=== PATIENT | female | born 1985 | race Caucasian/White ===

== ENCOUNTER 2017-11-19 19:27 | Emergency (ER) | payer OTHER, SELFPAY ==
[2017-11-19 20:10] VITALS: BP 137/90; PULSE 110; RESP 20; TEMP 36.6; O2SAT 100; BMI 22.3
[2017-11-19 20:41] VITALS: BP 00/00; PULSE 78; RESP 20; TEMP 36.6; O2SAT 99
== END 2017-11-19 20:41 | disposition left against medical advice (07) ==
LOC: UTC 19:30 → ER 19:44
PROVIDERS: Emergency Provider Emergency Medicine; Family Provider Emergency Medicine; PCP Emergency Medicine
DX: Z53.29 Procedure and treatment not carried out because of patient's decision for other reasons (principal)
CPT/HCPCS: 99211; 99282

== ENCOUNTER → 2017-12-06 13:01 | Outpatient (REF) | payer OTHER, SELFPAY ==
[2017-12-06 18:38] LABS: Alanine Aminotransferase 123 U/L (12-78); Albumin Level 3.9 gm/dL (3.4-5.0); Albumin/Globulin Ratio 1.1 (1.1-1.8); Alkaline Phosphatase 121 U/L (46-116); Anion Gap 12.5 mEq/L (5-15); Aspartate Amino Transferase 72 U/L (15-37); Bilirubin,Total 0.3 mg/dL (0.2-1.0); Blood Urea Nitrogen 11 mg/dL (7-18); Calcium 9.2 mg/dL (8.5-10.1); Carbon Dioxide 30 mmol/L (21.0-32.0); Chloride 104 mmol/L (98-107); Creatinine,Serum 0.52 mg/dL (0.55-1.02); Estimated Glomerular Filt Rate 136 ml/min (>60); GFR (African American) 164 ML/MIN (>60); Globulin 3.6 gm/dl (1.3-3.2); Glucose 84 mg/dL (74-106); Potassium 4.5 mmoL/L (3.5-5.1); Sodium 142 mmol/L (136-145); Total Protein,Serum 7.5 gm/dL (6.4-8.2)
[2017-12-06 20:32] LABS: Basophils # 0.1 K/mm3 (0-0.2); Basophils % 0.7 % (0.1-2.0); Eosinophils # 0.2 K/mm3 (0.0-0.4); Eosinophils % 2.8 % (0.1-12.0); Hematocrit 43.1 % (37.0-47.0); Hemoglobin 14.2 g/dL (12.2-16.2); Lymphocytes # 2.4 K/mm3 (0.7-4.5); Lymphocytes % 38.7 K/mm3 (10-50); Mean Corpuscular HGB Conc 33.1 g/dL (31.8-35.4); Mean Corpuscular Hemoglobin 30.9 pg (27.0-31.2); Mean Corpuscular Volume 93.3 fl (81-99); Mean Platelet Volume 9.8 fl (7.4-10.4); Monocytes # 0.3 K/mm3 (0.1-1.0); Monocytes % 5.1 % (1.7-9.3); Neutrophils # 3.3 K/mm3 (1.8-7.8); Neutrophils % 52.7 % (37.0-80.0); Platelet Count 324 K/mm3 (142-424); Red Blood Count 4.61 M/mm3 (4.20-5.40); Red Cell Distribution Width 12.2 % (11.5-17.5); White Blood Count 6.2 K/mm3 (4.8-10.8)
[2017-12-06 20:33] LABS: Erythrocyte Sedimentation Rate 14 mm/hr (0-20)
== END ==
LOC: LAB 13:01
PROVIDERS: Visit Provider Emergency Medicine
DX: R53.83 Other fatigue (principal)
CPT/HCPCS: 80053; 85025; 85651

== ENCOUNTER → 2017-12-07 14:43 | Outpatient (CLI) | payer OTHER, SELFPAY ==
--- NOTE | 2017-12-07 14:51 | XR_ITS ---
XR sinus min 3V CLINICAL INDICATION: ITS.REASON: Headache ORDERING PHYSICIAN: Chris Kendall MD PATIENT AGE: 32 years COMPARISON: None FINDINGS: No significant mucosal thickening or sinus air-fluid level. No acute bony anomalies. No lytic or blastic change. IMPRESSION: Negative paranasal sinuses.
[2017-12-09 08:20] LABS: Hep A Ab, IgM Negative (Negative); Hepatitis B Core Antibody IgM Negative (Negative); Hepatitis B Surface Antigen Negative (Negative)
[2017-12-09 18:36] LABS: Hepatitis C Antibody >11.0 s/co ratio (0.0-0.9)
== END ==
PROVIDERS: PCP Emergency Medicine; Visit Provider Emergency Medicine
DX: R79.89 Other specified abnormal findings of blood chemistry (principal); R51 Headache
CPT/HCPCS: 36415; 70220; 80074

== ENCOUNTER 2017-12-12 21:05 | Emergency (ER) | payer OTHER, SELFPAY ==
[2017-12-12 21:11] VITALS: BP 151/88; PULSE 67; RESP 20; TEMP 37.1; O2SAT 100; BMI 21.9
--- NOTE | 2017-12-12 21:18 | XR_ITS ---
XR chest 2V HISTORY: ITS.REASON: fever ORDERING PHYSICIAN: Domingo Hillman MD PATIENT AGE: 32 years COMPARISON: 12/24/2010 FINDINGS: The cardiomediastinal silhouette and pulmonary vascularity are within normal limits. The lungs are clear without infiltrates, suspicious nodules, or pleural effusions. No acute bony abnormalities. IMPRESSION: No change with no acute finding, negative chest
--- NOTE | 2017-12-12 21:18 | CT_ITS ---
CT abdomen pelvis wo con CLINICAL INDICATION: Generalized abdominal pain ITS.REASON: abd pain ORDERING PHYSICIAN: Domingo Hillman MD PATIENT AGE: 32 years COMPARISON: 02/10/2016 TECHNIQUE: Axial images obtained with sagittal and coronal reformats. All CT scans at the facility use one or more dose reduction, viz: automated exposure control; ma/kV adjustment per patient size (including targeted exams where dose is matched to indication; i.e. head); or iterative reconstruction technique. PROCEDURE: Oral Contrast: None IV Contrast: None . FINDINGS: Lung bases are clear. Prior cholecystectomy without ductal dilatation. The liver, spleen, adrenal glands, pancreas, and kidneys have an unremarkable unenhanced CT appearance aside from a 2 mm nonobstructing stone in the mid polar region of the left kidney and minimal hyperdensity of the renal papilla nonspecific. There is a moderate amount of retained colonic feces. No evidence of appendicitis, intestinal obstruction, or free air. Post hysterectomy changes. No acute finding pelvis. There are multiple unopacified bowel loops present within the abdomen/pelvis which could obscure or mimic pathology. If symptoms persists, consider repeating exam with IV and oral contrast administration. No acute bony anomalies. There is a ridge of sclerosis involving the left ilium consistent with a bone island unchanged. IMPRESSION: 1. Constipation. 2. Nonobstructing left nephrolithiasis. 3. There are multiple unopacified bowel loops present within the abdomen/pelvis which could obscure or mimic pathology. If symptoms persists, consider repeating exam with IV and oral contrast administration
[2017-12-12 21:35] LABS: Microscopic, Urine URINE MICROSCOPIC (MICROSCOPIC)
[2017-12-12 21:37] LABS: Appearance,Urine CLEAR (Clear); Blood, Urine Negative (Negative); Glucose,Urine (UA) Negative (Negative); Ketones,Urine Negative (Negative); Leukocyte Esterase,Urine Negative (Negative); Nitrate,Urine Negative (Negative); PH,Urine 5.5 (5.0-8.5); Protein,Urine 1+ (Negative); Specific Gravity, Urine >= 1.030 (1.005-1.030)
[2017-12-12 21:39] LABS: Bilirubin,Urine 2+ (Negative); Color,Urine AMBER (Yellow)
[2017-12-12 21:46] LABS: Amphetamine/Metha Screen,Urine Negative ng/mL (<1000); Barbiturates Screen,Urine Negative ng/mL (<200); Benzodiazepines Screen,Urine Negative ng/mL (200); Cannabinoid Screen,Urine Positive ng/mL (<50); Cocaine Screen,Urine Negative ng/g (<300); Methadone Screen,Urine Negative ng/mL (<300); Opiate Screen,Urine Negative ng/mL (<300); Phencyclidine Screen,Urine Negative ng/mL (<25)
--- NOTE | 2017-12-12 21:48 | PC.NURSE ---
unable to obtain iv access after multiple attempts by myself and holger valadez emt-p. dr. morton notified. requested lab to attempt blood draw collection.
[2017-12-12 22:12] LABS: Bacteria,Urine 3+ /lpf; Mucus,Urine 2+ /lpf; RBC,Urine Occasional #/hpf (0-3); Renal Epithelial Cells,Urine Occasional #/lpf (0); Squamous Epithelial Cell,Urine TNTC #/hpf (0-5)
[2017-12-12 22:27] LABS: Basophils % 0.6 % (0.1-2.0); Eosinophils # 0.2 K/mm3 (0.0-0.4); Eosinophils % 3.5 % (0.1-12.0); Hematocrit 37.1 % (37.0-47.0); Hemoglobin 12.9 g/dL (12.2-16.2); Lymphocytes # 2.3 K/mm3 (0.7-4.5); Lymphocytes % 46.8 K/mm3 (10-50); Mean Corpuscular HGB Conc 34.6 g/dL (31.8-35.4); Mean Corpuscular Volume 89.5 fl (81-99); Mean Platelet Volume 7.6 fl (7.4-10.4); Monocytes # 0.2 K/mm3 (0.1-1.0); Monocytes % 4.6 % (1.7-9.3); Neutrophils # 2.2 K/mm3 (1.8-7.8); Neutrophils % 44.5 % (37.0-80.0); Platelet Count 236 K/mm3 (142-424); Red Blood Count 4.15 M/mm3 (4.20-5.40); Red Cell Distribution Width 12.1 % (11.5-17.5); White Blood Count 4.9 K/mm3 (4.8-10.8)
--- NOTE | 2017-12-12 22:37 | HMH.EDGENADL ---
ED Disposition Clinical Impression: Epigastric abdominal pain, Dehydration Disposition: Home, Self-Care Condition on Discharge: Good Instructions: DI for Abdominal Pain-Adult, DI for Dehydration -- Adult Additional Instructions: Drink plenty of fluids, Gatorade and water tonight and tomorrow. Keep appointment to see Dr. Kendall tomorrow. Referrals: Chris Kendall MD [Primary Care Provider] - - Critical Care Critical Care Time: No Attestation: On 12/12/17, the high probability of a clinically significant, sudden or life threatening deterioration of the following system(s) required my full and direct attention, intervention and personal management. The time I documented below is in addition to time spent performing reported procedures but includes the following listed in this critical care notation. Medical Decision Making - Tacho Inquiry Pt receiving controlled substance: No Vital Signs: 12/12/17 21:11 Temperature 98.7 F Temperature Source Oral Pulse Rate [Right Radial] 67 Respiratory Rate 20 Blood Pressure [Right Arm] 151/88 Blood Pressure Mean [Right Arm] 109 Blood Pressure Position [Right Arm] Sitting 02 Sat by Pulse Oximetry 100 - Lab Data Lab results reviewed: Yes: I reviewed the patient's lab results. Lab Results 12/12/17 21:30: Urine Color Deja, Urine Appearance Clear, Urine pH 5.5, Ur Specific [place] >= 1.030, Urine Protein 1+, Urine Glucose (UA) Negative, Urine Ketones Negative, Urine Blood Negative, Urine Nitrate Negative, Urine Bilirubin 2+ A, Urine Urobilinogen 4.0, Ur Leukocyte Esterase Negative, Urine RBC Occasional, Urine WBC 10-20, Ur Squamous Epith Cells Tntc, Ur Renal Epithelial Cell Occasional, Urine Bacteria 3+, Urine Mucus 2+ 12/12/17 21:30: Urine Opiates Screen Negative, Ur Barbituates Screen Negative, Ur Phencyclidine Scrn Negative, Ur Amphetamines Screen Negative, U Methamphetamines Scrn Negative, U Benzodiazepines Scrn Negative, Urine Cocaine Screen Negative, U Marijuana (THC) Screen Positive H 12/12/17 22:15: WBC 4.9, RBC 4.15 L, Hgb 12.9, Hct 37.1, MCV 89.5, MCH 31.0, MCHC 34.6, RDW 12.1, Plt Count 236, MPV 7.6, Neut % (Auto) 44.5, Lymph % (Auto) 46.8, [place] % (Auto) 4.6, Eos % (Auto) 3.5, Baso % (Auto) 0.6, Neut # (Auto) 2.2, Lymph # (Auto) 2.3, [place] # (Auto) 0.2, Eos # (Auto) 0.2, Baso # (Auto) 0.0 12/12/17 22:15: Sodium 136, Potassium 3.9, Chloride 104, Carbon Dioxide 25, Anion Gap 10.9, BUN 22 H, Creatinine 0.47 L, Estimated Creat Clear 156, Estimated GFR 153, Est GFR ( Amer) 185, Glucose 98, Calcium 8.6, Total Bilirubin 0.3, AST 45 H, ALT 55, Alkaline Phosphatase 87, Total Creatine Kinase 128, CK-MB (CK-2) 1.3, CK-MB (CK-2) Rel Index 1.0, Troponin I < 0.02, Total Protein 7.5, Albumin 3.9, Globulin 3.6 H, Albumin/Globulin Ratio 1.1, Plasma/Serum Alcohol 0 12/12/17 22:15: Amylase 27, Lipase 55 L Urinalysis has too numerous to count epithelial cells, likely contaminated. Advised to follow-up culture results from her primary care doctor, doubt UTI. Result diagrams: 12/12/17 22:15 12/12/17 22:15 Orders (Tests/Meds): ED MEDICATIONS Discontinued Medications Generic Name Dose Route Start Last Admin Trade Name Freq PRN Reason Stop Dose Admin Sodium Chloride 1,000 mls @ 999 mls/hr 12/12/17 21:30 12/12/17 21:49 Sod Chlor 0.9% 1000ml Bag IV 12/12/17 22:30 Not Given .Q1H1M [facility] ORDERS Category Date Time Status CT abdomen pelvis wo con Stat Cat Scan 12/12/17 21:18 Taken XR chest 2V Stat Exams 12/12/17 21:18 Taken Urinalysis and Microscopic Stat Lab 12/12/17 22:43 Ordered Urine Culture Stat Micro 12/12/17 21:30 Received - CT Data CT Scan: Abdomen, Pelvis Time Received: 22:[address] Reviewed: Yes: I have viewed the radiologist's interpretation Findings Narrative: CT scan interpreted by [facility] radiologist. Faxed report received and reviewed: Evidence of some degree of constipation. - ECG Data Tracing #1 EKG interpreted by Paige
[2017-12-12 22:51] LABS: Alanine Aminotransferase 55 U/L (12-78); Albumin Level 3.9 gm/dL (3.4-5.0); Albumin/Globulin Ratio 1.1 (1.1-1.8); Alkaline Phosphatase 87 U/L (46-116); Anion Gap 10.9 mEq/L (5-15); Aspartate Amino Transferase 45 U/L (15-37); Bilirubin,Total 0.3 mg/dL (0.2-1.0); Blood Urea Nitrogen 22 mg/dL (7-18); Calcium 8.6 mg/dL (8.5-10.1); Carbon Dioxide 25 mmol/L (21.0-32.0); Chloride 104 mmol/L (98-107); Creatine Kinase 128 U/L (26-192); Creatine Kinase MB 1.3 ng/ml (0.0-3.6); Creatinine Clearance Estimated 156 mL/min (0-300); Creatinine,Serum 0.47 mg/dL (0.55-1.02); Estimated Glomerular Filt Rate 153 ml/min (>60); GFR (African American) 185 ML/MIN (>60); Globulin 3.6 gm/dl (1.3-3.2); Glucose 98 mg/dL (74-106); Potassium 3.9 mmoL/L (3.5-5.1); Sodium 136 mmol/L (136-145); Total Protein,Serum 7.5 gm/dL (6.4-8.2); Troponin I < 0.02 ng/ml (0.00-0.06)
[2017-12-12 23:01] LABS: Ethyl Alcohol 0 mg/dL (0-99)
[2017-12-12 23:07] LABS: Amylase 27 U/L (25-125); Lipase 55 u/L (73-393)
[2017-12-12 23:32] VITALS: BP 149/87; PULSE 85; RESP 16; TEMP 36.8; O2SAT 99
== END 2017-12-12 23:33 | disposition home or self-care (01) ==
PROVIDERS: Emergency Provider Emergency Medicine; Family Provider Emergency Medicine; PCP Emergency Medicine
DX: R10.13 Epigastric pain (principal); E86.0 Dehydration; Z88.0 Allergy status to penicillin; F17.210 Nicotine dependence, cigarettes, uncomplicated
CPT/HCPCS: 71046; 74176; 80053; 80305; 81001; 82150; 82550; 82553; 83690; 84484; 85025; 87086; 93005; 99283

== ENCOUNTER → 2018-01-02 10:34 | Outpatient (REF) | payer OTHER, SELFPAY ==
[2018-01-02 14:44] LABS: Basophils % 0.5 % (0.1-2.0); Eosinophils # 0.2 K/mm3 (0.0-0.4); Hematocrit 39.1 % (37.0-47.0); Hemoglobin 12.9 g/dL (12.2-16.2); Lymphocytes # 2.7 K/mm3 (0.7-4.5); Lymphocytes % 41.7 K/mm3 (10-50); Mean Corpuscular HGB Conc 32.9 g/dL (31.8-35.4); Mean Corpuscular Hemoglobin 31.3 pg (27.0-31.2); Mean Corpuscular Volume 95.1 fl (81-99); Mean Platelet Volume 8.5 fl (7.4-10.4); Monocytes # 0.4 K/mm3 (0.1-1.0); Monocytes % 5.6 % (1.7-9.3); Neutrophils # 3.1 K/mm3 (1.8-7.8); Neutrophils % 49.3 % (37.0-80.0); Platelet Count 229 K/mm3 (142-424); Red Blood Count 4.11 M/mm3 (4.20-5.40); Red Cell Distribution Width 12.4 % (11.5-17.5); White Blood Count 6.3 K/mm3 (4.8-10.8)
[2018-01-02 14:46] LABS: Alanine Aminotransferase 74 U/L (12-78); Albumin Level 3.8 gm/dL (3.4-5.0); Albumin/Globulin Ratio 1.1 (1.1-1.8); Alkaline Phosphatase 116 U/L (46-116); Amylase 44 U/L (25-125); Anion Gap 11.3 mEq/L (5-15); Aspartate Amino Transferase 33 U/L (15-37); Bilirubin,Total 0.3 mg/dL (0.2-1.0); Blood Urea Nitrogen 12 mg/dL (7-18); Calcium 8.9 mg/dL (8.5-10.1); Carbon Dioxide 29 mmol/L (21.0-32.0); Chloride 104 mmol/L (98-107); Creatinine,Serum 0.52 mg/dL (0.55-1.02); Estimated Glomerular Filt Rate 136 ml/min (>60); GFR (African American) 164 ML/MIN (>60); Globulin 3.4 gm/dl (1.3-3.2); Glucose 87 mg/dL (74-106); Lipase 92 u/L (73-393); Potassium 4.3 mmoL/L (3.5-5.1); Sodium 140 mmol/L (136-145); Total Protein,Serum 7.2 gm/dL (6.4-8.2)
[2018-01-07 18:50] LABS: Hepatitis C Genotype 1a (.)
== END ==
LOC: LAB 10:34
PROVIDERS: Visit Provider Emergency Medicine
DX: R10.11 Right upper quadrant pain (principal)
CPT/HCPCS: 80053; 82150; 83690; 85025; 87522

== ENCOUNTER 2020-07-01 23:21 | Emergency (ER) | payer MEDICAID, SELFPAY ==
[2020-07-01 23:38] VITALS: BP 152/96; PULSE 77; RESP 16; TEMP 37; O2SAT 99; BMI 24.0
--- NOTE | 2020-07-01 23:54 | XR_ITS ---
PROCEDURE: XR CHEST 2V CLINICAL HISTORY: SOA post covid exposure COMPARISON: CR CXR2V XR chest 2V from 12/12/2017 FINDINGS: The cardiomediastinal silhouette and pulmonary vascularity are within normal limits. The lungs are clear without infiltrates, suspicious nodules, or pleural effusions. No acute bony abnormalities. IMPRESSION: No acute findings. Dictated by: Ifeanyi Jacinto MD 07/02/2020 05:28 Ifeanyi Jacinto MD in [facility] 07/02/2020 05:28
--- NOTE | 2020-07-02 00:01 | HMH.EDSOB ---
ED Disposition Clinical Impression: Exposure to COVID-19 virus Disposition: Home, Self-Care Condition on Discharge: Good Instructions: DI for Shortness of Breath Additional Instructions: fluids and see pcp for follow up Referrals: Ellen Hinkle APRN [Primary Care Provider] - - Critical Care Critical Care Time: No Attestation: On 07/01/20, the high probability of a clinically significant, sudden or life threatening deterioration of the following system(s) required my full and direct attention, intervention and personal management. The time I documented below is in addition to time spent performing reported procedures but includes the following listed in this critical care notation. Medical Decision Making - Medical Records Medical records reviewed: Yes: I reviewed the patient's medical records. - Tacho Inquiry Pt receiving controlled substance: No Vital Signs: 07/01/20 23:38 Temperature 98.6 F Temperature Source Oral Pulse Rate [Right] 77 Respiratory Rate 16 Blood Pressure [Right Arm] 152/96 H Blood Pressure Mean [Right Arm] 114 Blood Pressure Source [Right Arm] Automatic Cuff Blood Pressure Position [Right Arm] Sitting 02 Sat by Pulse Oximetry 99 Oxygen Delivery Method Room Air - Lab Data Lab results reviewed: Yes: I reviewed the patient's lab results. Orders (Tests/Meds): ED MEDICATIONS Discontinued Medications Generic Name Dose Route Start Last Admin Trade Name Freq PRN Reason Stop Dose Admin Sodium Chloride 1,000 mls @ 999 mls/hr 07/01/20 23:45 07/02/20 00:30 Sod Chlor 0.9% 1000ml Bag IV 07/02/20 00:45 Not Given .Q1H1M CATHY Ondansetron HCl 4 mg 07/01/20 23:54 07/02/20 00:30 Ondansetron 4mg/2ml Vial IV 07/01/20 23:55 Not Given ONCE ONE Ondansetron HCl 4 mg 07/02/20 00:28 07/02/20 00:31 Ondansetron 4mg Odt SL 07/02/20 00:29 4 mg ONCE ONE Administration ORDERS Category Date Time Status XR chest 2V Stat Exams 07/01/20 23:54 Taken C-Reactive Protein Stat Lab 07/01/20 23:54 Received Complete Blood Count Auto Diff Stat Lab 07/01/20 23:54 Received Comprehensive Metabolic Panel Stat Lab 07/01/20 23:54 Received Erythrocyte Sedimentation Rate Stat Lab 07/01/20 23:54 Received - Radiology Data #1 Image(s): Chest Image Reviewed: Yes I reviewed the patient's radiology image Preliminary Findings: Normal/NAD Resp/SOB HPI - General Chief Complaint: Shortness of Breath/Dyspnea Stated Complaint: fever,headache,V/D,hot & cold, aches all over Time Seen by Provider: 07/02/20 00:00 Mode of Arrival: Ambulatory Source of Information: Patient, Medical Record Limitations: No Limitations Description of Symptoms (Recalled from ER Triage Doc. by RN): Pt states she has been exposed to COVID at her workplace and it c/o Diarrhea, cough, SOA and decreased taste. - History of Present Illness pt with exposure to covid-19 and has cough and sob with change in taste -no rash MD Complaint: shortness of breath, cough Onset (ago): day(s) Context: other (exposure ) Severity: moderate Associated symptoms: nausea/vomiting Treatment prior to arrival: none - Related Data Home oxygen amount: none Allergies Allergy/AdvReac Type Severity Reaction Status Date / Time Penicillins [PENICILLINS] Allergy Intermediate Verified 07/02/20 00:03 [facility] History - Hepatitis A Screen Drug use history?: Yes High risk sexual behaviors?: No History of sexually transmitted infection?: No Currently employed?: No Childcare worker?: No Do you have indoor plumbing?: Yes Do you have electricity?: Yes Attestation statement:: This patient has been screened for Hepatitis A risk factors. I have reviewed the patient's past medical history: Yes Medical History: Reports:: Kidney Stones Denies:: Cancer, Diabetes Mellitus Type 1, Diabetes Mellitus Type 2, MRSA Other Surgeries: Yes: Hysterectomy-Total, Other Amputation: No Fractures: Yes - Social History Smoking Statu
[2020-07-02 00:41] LABS: Basophils # 0.1 K/mm3 (0-0.2); Basophils % 0.8 % (0.1-2.0); Eosinophils # 0.3 K/mm3 (0.0-0.4); Eosinophils % 3.7 % (0.1-12.0); Hematocrit 41.2 % (37.0-47.0); Hemoglobin 13.4 g/dL (12.2-16.2); Lymphocytes # 2.2 K/mm3 (0.7-4.5); Lymphocytes % 32.6 % (10-50); Mean Corpuscular HGB Conc 32.6 g/dL (31.8-35.4); Mean Corpuscular Hemoglobin 31.1 pg (27.0-31.2); Mean Corpuscular Volume 95.5 fl (81-99); Mean Platelet Volume 7.5 fl (7.4-10.4); Monocytes # 0.4 K/mm3 (0.1-1.0); Monocytes % 5.6 % (1.7-9.3); Neutrophils # 3.8 K/mm3 (1.8-7.8); Neutrophils % 57.3 % (37.0-80.0); Platelet Count 279 K/mm3 (142-424); Red Blood Count 4.32 M/mm3 (4.20-5.40); White Blood Count 6.7 K/mm3 (4.8-10.8)
[2020-07-02 00:51] LABS: Alanine Aminotransferase 56 U/L (12-78); Albumin Level 4.5 g/dl (3.5-5.0); Albumin/Globulin Ratio 1.5 (1.1-1.8); Alkaline Phosphatase 108 U/L (38-126); Anion Gap 10.1 mEq/L (5-15); Aspartate Amino Transferase 46 U/L (14-36); Bilirubin,Total 0.3 mg/dl (0.2-1.3); Blood Urea Nitrogen 12 mg/dl (7-17); Calcium 9.3 mg/dl (8.4-10.2); Carbon Dioxide 27 mmol/L (22.0-30.0); Chloride 107 mmol/L (98-107); Creatinine Clearance Estimated 156 mL/min (50-200); Estimated Glomerular Filt Rate 140 ml/min (>60); GFR (African American) 169 ML/MIN (>60); Globulin 3.1 g/dL (1.3-3.2); Glucose 92 mg/dl (74-100); Potassium 4.1 mmoL/L (3.5-5.1); Sodium 140 mmol/L (136-145); Total Protein,Serum 7.6 g/dl (6.3-8.2)
[2020-07-02 00:56] LABS: C-Reactive Protein 0.5 mg/L (0-4)
--- NOTE | 2020-07-02 00:58 | PC.NURSE ---
2 attempts and IV was not able to be obtained Dr Kendall notified
[2020-07-02 01:04] LABS: Adenovirus,PCR Not Detected (NotDetected); Bordetella Pertussis Not Detected (NotDetected); Chlamydophila Pneumoniae, PCR Not Detected (NotDetected); Coronavirus 19, PCR Not Detected (NotDetected); Coronavirus 229E Not Detected (NotDetected); Coronavirus NL63 Not Detected (NotDetected); Coronavirus OC43 Not Detected (NotDetected); Coronovirus HKU1,PCR Not Detected (NotDetected); Human Metapneumovirus Not Detected (NotDetected); Influenza A, PCR Not Detected (NotDetected); Influenza AH1, 2009 Not Detected (NotDetected); Influenza AH1, PCR Not Detected (NotDetected); Influenza AH3,PCR Not Detected (NotDetected); Influenza B, PCR Not Detected (NotDetected); Mycoplasma Pneumoniae, PCR Not Detected (NotDetected); Parainfluenza 1, PCR Not Detected (NotDetected); Parainfluenza 2, PCR Not Detected (NotDetected); Parainfluenza 3, PCR Not Detected (NotDetected); Parainfluenza 4, PCR Not Detected (NotDetected); Respiratory Syncytial Virus Not Detected (NotDetected); Rhinovirus/Enterovirus Not Detected (NotDetected)
[2020-07-02 01:22] LABS: Erythrocyte Sedimentation Rate 19 mm/hr (0-20)
[2020-07-02 01:40] LABS: Coronavirus 19 IgG Antibody Negative (Negative); Coronavirus 19 IgM Antibody Negative (Negative)
[2020-07-02 01:41] VITALS: BP 141/86; PULSE 71; RESP 16; TEMP 36.8; O2SAT 98
== END 2020-07-02 01:42 | disposition home or self-care (01) ==
PROVIDERS: Emergency Provider Emergency Medicine; PCP Nurse Practitioner
DX: Z20.828 Contact with and (suspected) exposure to other viral communicable diseases (principal); F17.210 Nicotine dependence, cigarettes, uncomplicated
CPT/HCPCS: 36415; 71046; 80053; 85025; 85651; 86140; 86328; 87581; 87633; 87798; 99282; U0003

== ENCOUNTER 2020-12-14 16:07 | Emergency (ER) | payer MEDICAID, SELFPAY ==
[2020-12-14] VITALS (7 sets, daily range): BP systolic 107–127; BP diastolic 74–98; PULSE 66–89; RESP 19–20; TEMP 36.6–36.9; O2SAT 99–100; BMI 24.0
--- NOTE | 2020-12-14 16:11 | HMH.EDGENADL ---
ED Disposition Clinical Impression: Pyelonephritis Disposition: Home, Self-Care Condition on Discharge: Good Additional Instructions: Take antibiotic as prescribed. Drink plenty of clear fluids. Return immediately if any generalized malaise, intractable nausea/vomiting, fever/chills, or other new concerning symptoms. Prescriptions: Cefdinir [Omnicef 300mg Capsule] 300 mg PO BID #20 cap Prescription Printed Referrals: Chris Kendall MD [Primary Care Provider] - - Critical Care Critical Care Time: No Attestation: On , the high probability of a clinically significant, sudden or life threatening deterioration of the following system(s) required my full and direct attention, intervention and personal management. The time I documented below is in addition to time spent performing reported procedures but includes the following listed in this critical care notation. Medical Decision Making - Medical Records Medical records reviewed: Yes: I reviewed the patient's medical records. - Tacho Inquiry Pt receiving controlled substance: No Vital Signs: 12/14/20 16:08 12/14/20 17:00 12/14/20 17:30 Temperature 97.8 F Temperature Source Oral Pulse Rate 73 66 Pulse Rate [Left Radial] 89 Respiratory Rate 20 Blood Pressure 116/76 Blood Pressure [Right Arm] 127/98 H Blood Pressure Mean 89 Blood Pressure Mean [Right Arm] 107 Blood Pressure Source [Right Arm] Automatic Cuff Blood Pressure Position [Right Arm] Supine 02 Sat by Pulse Oximetry 100 99 100 Oxygen Delivery Method Room Air - Lab Data Lab Results 12/14/20 16:15: Urine Color Yellow, Urine Appearance Clear, Urine pH 6.5, Ur Specific [place] 1.020, Urine Protein Negative, Urine Glucose (UA) Negative, Urine Ketones Negative, Urine Blood Negative, Urine Nitrate Negative, Urine Bilirubin Negative, Urine Urobilinogen 4.0, Ur Leukocyte Esterase Trace, Urine RBC Occasional, Urine WBC 5-10, Ur Squamous Epith Cells 10-20, Urine Bacteria 2+ 12/14/20 16:15: WBC 6.3, RBC 4.69, Hgb 14.7, Hct 44.9, MCV 95.8, MCH 31.4 H, MCHC 32.8, RDW 12.6, Plt Count 318, MPV 8.5, Neut % (Auto) 70.2, Lymph % (Auto) 22.4, [place] % (Auto) 4.6, Eos % (Auto) 1.9, Baso % (Auto) 0.9, Neut # (Auto) 4.5, Lymph # (Auto) 1.4, [place] # (Auto) 0.3, Eos # (Auto) 0.1, Baso # (Auto) 0.1 12/14/20 16:15: Sodium 139, Potassium 3.9, Chloride 103, Carbon Dioxide 26, Anion Gap 13.9, BUN 11, Creatinine 0.50 L, Estimated Creat Clear 156, Estimated GFR 140, Est GFR ( Amer) 169, Glucose 90, Calcium 10.0, Total Bilirubin 0.7, AST 74 H, ALT 72, Alkaline Phosphatase 107, Total Protein 9.2 H, Albumin 5.4 H, Globulin 3.8 H, Albumin/Globulin Ratio 1.4, Amylase 74, Lipase 49 Result diagrams: 12/14/20 16:15 12/14/20 16:15 Orders (Tests/Meds): ED MEDICATIONS Discontinued Medications Generic Name Dose Route Start Last Admin Trade Name Freq PRN Reason Stop Dose Admin Sodium Chloride 1,000 mls @ 999 mls/hr 12/14/20 16:30 Sod Chlor 0.9% 1000ml Bag IV 12/14/20 17:30 .Q1H1M CATHY Lactated Ringer's 1,000 mls @ 999 mls/hr 12/14/20 16:30 12/14/20 16:28 Lactated Ringer's 1000 Ml Bag IV 12/14/20 17:30 999 mls/hr .Q1H1M CATHY Administration Ketorolac Tromethamine 30 mg 12/14/20 16:23 12/14/20 16:28 Ketorolac 30mg/Ml Vial IV 12/14/20 16:24 30 mg ONCE ONE Administration Ondansetron HCl 4 mg 12/14/20 16:23 12/14/20 16:28 Ondansetron 4mg/2ml Vial IV 12/14/20 16:24 4 mg ONCE ONE Administration ORDERS Category Date Time Status Urine Culture Stat Micro 12/14/20 16:15 Received Medical Decision Narrative: Patient is a 35-year-old female presenting with left flank pain. She does have remote history of kidney stones and her HPI/physical exam consistent with renal colic. At this time, patient given Toradol, Zofran, and a fluid bolus. As she has required lithotripsy in the past for difficulty passing stone CT without contrast will be ordered. Metaboli
--- NOTE | 2020-12-14 16:24 | CT_ITS ---
PROCEDURE: CT ABDOMEN PELVIS WO CON CLINICAL INDICATION: pain COMPARISON: CT ABDPELWO CT abdomen pelvis wo con from 12/12/2017 TECHNIQUE: Axial images obtained with sagittal and coronal reformats. All CT scans at the facility use one or more dose reduction, viz: automated exposure control, ma/kV adjustment per patient size (including targeted exams where dose is matched to indication, i.e. head), or iterative reconstruction technique. FINDINGS: LOWER THORAX: No acute finding ABDOMEN & PELVIS: Evaluation of the upper abdominal solid viscera is limited due to lack of intravenous contrast. The liver, spleen, adrenal glands, and pancreas are unremarkable within the limitations of the study. Few scattered nonobstructing calculi noted in the kidneys bilaterally measuring up to 2 millimeters. No evidence of hydronephrosis or hydroureter. No evidence of obstructive calculi are noted. Multiple calcified phleboliths are noted in the pelvis. The bladder is unremarkable. The pelvic structures are within normal limits. Large and small bowel loops demonstrate no focal wall thickening, obstruction or adjacent inflammatory changes. Cholecystectomy is noted. No intra or extrahepatic biliary dilation. No free fluid or free intraperitoneal air. Focal sclerotic density noted on the sacrum and right acetabulum, likely represents bone islands. Visualized lumbar spine is unremarkable. IMPRESSION: Bilateral non-obstructing renal calculi. No evidence of hydronephrosis. Dictated by: Concepcion Lombardi 12/14/2020 17:33 Concepcion Lombardi in [place] 12/14/2020 17:33
[2020-12-14 16:28] LABS: Microscopic, Urine URINE MICROSCOPIC (MICROSCOPIC)
[2020-12-14 16:31] LABS: Appearance,Urine CLEAR (Clear); Bilirubin,Urine Negative (Negative); Blood, Urine Negative (Negative); Color,Urine YELLOW (Yellow); Glucose,Urine (UA) Negative (Negative); Ketones,Urine Negative (Negative); Leukocyte Esterase,Urine TRACE (Negative); Nitrate,Urine Negative (Negative); PH,Urine 6.5 (5.0-8.5); Protein,Urine Negative (Negative)
[2020-12-14 16:50] LABS: Bacteria,Urine 2+ /lpf; RBC,Urine Occasional #/hpf (0-3)
--- NOTE | 2020-12-14 17:06 | PC.NURSE ---
PT GOING TO CT
[2020-12-14 18:37] LABS: Basophils # 0.1 K/mm3 (0-0.2); Basophils % 0.9 % (0.1-2.0); Eosinophils # 0.1 K/mm3 (0.0-0.4); Eosinophils % 1.9 % (0.1-12.0); Hematocrit 44.9 % (37.0-47.0); Hemoglobin 14.7 g/dL (12.2-16.2); Lymphocytes # 1.4 K/mm3 (0.7-4.5); Lymphocytes % 22.4 % (10-50); Mean Corpuscular HGB Conc 32.8 g/dL (31.8-35.4); Mean Corpuscular Hemoglobin 31.4 pg (27.0-31.2); Mean Corpuscular Volume 95.8 fl (81-99); Mean Platelet Volume 8.5 fl (7.4-10.4); Monocytes # 0.3 K/mm3 (0.1-1.0); Monocytes % 4.6 % (1.7-9.3); Neutrophils # 4.5 K/mm3 (1.8-7.8); Neutrophils % 70.2 % (37.0-80.0); Platelet Count 318 K/mm3 (142-424); Red Blood Count 4.69 M/mm3 (4.20-5.40); Red Cell Distribution Width 12.6 % (11.5-17.5); White Blood Count 6.3 K/mm3 (4.8-10.8)
[2020-12-14 18:46] LABS: Chloride 103 mmol/L (98-107); Sodium 139 mmol/L (136-145)
[2020-12-14 18:47] LABS: Potassium 3.9 mmoL/L (3.5-5.1)
[2020-12-14 18:49] LABS: Alanine Aminotransferase 72 U/L (12-78); Alkaline Phosphatase 107 U/L (38-126); Amylase 74 U/L (30-110); Anion Gap 13.9 mEq/L (5-15); Aspartate Amino Transferase 74 U/L (14-36); Bilirubin,Total 0.7 mg/dl (0.2-1.3); Blood Urea Nitrogen 11 mg/dl (7-17); Carbon Dioxide 26 mmol/L (22.0-30.0); Creatinine Clearance Estimated 156 mL/min (50-200); Estimated Glomerular Filt Rate 140 ml/min (>60); GFR (African American) 169 ML/MIN (>60); Glucose 90 mg/dl (74-100); Lipase 49 U/L (23-300)
[2020-12-14 18:50] LABS: Albumin Level 5.4 g/dl (3.5-5.0); Albumin/Globulin Ratio 1.4 (1.1-1.8); Globulin 3.8 g/dL (1.3-3.2); Total Protein,Serum 9.2 g/dl (6.3-8.2)
== END 2020-12-14 19:57 | disposition home or self-care (01) ==
PROVIDERS: Emergency Provider Emergency Medicine; PCP Emergency Medicine
DX: N12 Tubulo-interstitial nephritis, not specified as acute or chronic (principal); Z87.442 Personal history of urinary calculi; F17.210 Nicotine dependence, cigarettes, uncomplicated; Z88.0 Allergy status to penicillin
CPT/HCPCS: 74176; 80053; 81001; 82150; 83690; 85025; 87086; 96365; 96375; 99283; J2405

== ENCOUNTER → 2020-12-21 13:52 | Outpatient (CLI) | payer MEDICAID, SELFPAY | PROVIDERS: Visit Provider Emergency Medicine | DX: N20.0 Calculus of kidney (principal); N30.90 Cystitis, unspecified without hematuria | CPT/HCPCS: 87086 ==

== ENCOUNTER 2021-01-09 19:43 | Emergency (ER) | payer MEDICAID, SELFPAY ==
[2021-01-09 19:44] VITALS: BP 120/74; PULSE 89; RESP 14; TEMP 36.9; O2SAT 95; BMI 22.8
--- NOTE | 2021-01-09 20:41 | HMH.EDUTC ---
[facility] Disposition Clinical Impression: Viral syndrome, Exposure to COVID-19 virus Disposition: Home, Self-Care Condition on Discharge: Good Instructions: Preventing the Spread of Coronavirus Discharge Instructions Additional Instructions: Drink plenty of fluids. Take tylenol for pain or fever. Return if you begin to have difficulty breathing. Follow up with your regular doctor. GO TO THE ER FOR ANY WORSENING SYMPTOMS Referrals: PCP,No [Primary Care Provider] - Forms: Work/School Release Time of Disposition: 20:42 Medical Decision Making - Medical Records Medical records reviewed: No: I reviewed the patient's medical records. - T[place] Inquiry Pt receiving controlled substance: No Vital Signs: 01/09/21 19:44 01/09/21 20:55 Temperature 98.4 F 98.4 F Temperature Source Oral Oral Pulse Rate 89 Pulse Rate [Right] 89 Respiratory Rate 14 14 Blood Pressure 120/74 Blood Pressure [Right Arm] 120/74 Blood Pressure Mean [Right Arm] 89 02 Sat by Pulse Oximetry 95 Oxygen Delivery Method Room Air Orders (Tests/Meds): ORDERS Category Date Time Status Covid-19 Nasal PCR ([facility]) Routine Lab 01/09/21 20:00 Received [facility] HPI - General Stated complaint: covid test Time Seen by Provider: 01/09/21 20:41 Description of Symptoms (Recalled from Triage Doc. by RN): pt request covid test. pt c/o n/v head congestion HEENT Symptoms (Recalled from RN notes): Yes Resp Symptoms (Recalled from RN notes): Yes Skin Symptoms (Recalled from RN notes): No MS Symptoms (Recalled from RN notes): No Functional Status (Recalled from RN notes): wnl - History of Present Illness Provider Complaint: She states that she may have been exposed to covid at her work. She c/o chills and body aches. She denies any shortness of breath. - Related Data Previous Rx's Medication Instructions Recorded diclofenac sodium 1 % topical gel 2 g TOPICAL QID #100 g 11/20/20 lidocaine 4 % topical patch 1 patch TOPICAL DAILY PRN #30 each 11/20/20 tizanidine 4 mg tablet 4 mg PO BID PRN #60 tab 11/20/20 tramadol 50 mg tablet 50 mg PO BID PRN #20 tab 11/20/20 Cefdinir [Omnicef 300mg Capsule] 300 mg PO BID #20 cap 12/14/20 acetaminophen 300 mg-codeine 30 mg 1 tab PO TID #10 tab 12/21/20 tablet Allergies Allergy/AdvReac Type Severity Reaction Status Date / Time Penicillins [PENICILLINS] Allergy Intermediate Verified 12/21/20 09:02 - Worker's Comp Is this a Worker's Comp case?: No H History - Hepatitis A Screen Drug use history?: No High risk sexual behaviors?: No History of sexually transmitted infection?: No Currently employed?: No Childcare worker?: No Do you have indoor plumbing?: Yes Do you have electricity?: Yes Attestation statement:: This patient has been screened for Hepatitis A risk factors. I have reviewed the patient's past medical history: Yes Medical History: Reports:: Kidney Stones Denies:: Cancer, Diabetes Mellitus Type 1, Diabetes Mellitus Type 2, MRSA Other Surgeries: Yes: Hysterectomy-Total, Other Amputation: No Fractures: Yes - Social History Smoking Status: Current every day smoker Tobacco Type: cigarettes # Packs/Day (cigarettes): 1 Alcohol Intake: never Substance Use Type: heroin Occupational Status: employed Family Hx:: Cancer, Heart Attack, Hyperlipidemia ROS Obtained: Yes All systems reviewed & no additional complaints - Constitutional Constitutional: Reports system reviewed and no additional complaints, except as docu - Eyes Eyes: Reports system reviewed and no additional complaints, except as docu - ENT Ears, Nose, Mouth, and Throat: Reports system reviewed and no additional complaints, except as docu - Cardiovascular Cardiovascular: Reports system reviewed and no additional complaints, except as docu - Respiratory Respiratory: Reports system reviewed and no additional complaints, except as docu - Gastrointestinal Gastrointestingal: Reports: system revie
[2021-01-09 20:55] VITALS: BP 120/74; PULSE 89; RESP 14; TEMP 36.9; O2SAT 95
== END 2021-01-09 20:56 | disposition home or self-care (01) ==
PROVIDERS: Emergency Provider Nurse Practitioner Family
DX: Z20.822 Contact with and (suspected) exposure to COVID-19 (principal); B34.9 Viral infection, unspecified
CPT/HCPCS: 99202; G0463; U0003

== ENCOUNTER 2021-05-28 20:15 | Emergency (ER) | payer MEDICAID, SELFPAY ==
[2021-05-28 21:21] VITALS: BP 127/83; PULSE 72; RESP 12; TEMP 36.8; O2SAT 100; BMI 21.4
[2021-05-28 21:34] VITALS: BP 127/83; PULSE 73; RESP 14; TEMP 36.8
--- NOTE | 2021-05-28 22:10 | HMH.EDUTC ---
[facility] [place] Disposition Clinical Impression: Exposure to COVID-19 virus Disposition: Home, Self-Care Condition on Discharge: Good Instructions: DI for COVID-19 (Suspected or Confirmed ), Preventing the Spread of Coronavirus Discharge Instructions Additional Instructions: Drink plenty of fluids. Take tylenol for pain or fever. Return if you begin to have difficulty breathing. Follow up with your regular doctor. GO TO THE ER FOR ANY WORSENING SYMPTOMS Quarantine until you know the results of your covid-19 test. If it is positive, the health department should call you and give you further instructions about your length of Quarantine and other things. Notify your school or workplace of your results and follow their instructions regarding return to work/school. Referrals: Chris Kendall MD [Primary Care Provider] - Forms: Work/School Release Time of Disposition: 22:10 Medical Decision Making - Medical Records Medical records reviewed: No: I reviewed the patient's medical records. - [place] Inquiry Pt receiving controlled substance: No Vital Signs: 05/28/21 21:21 05/28/21 21:34 Temperature 98.2 F 98.2 F Temperature Source Oral Pulse Rate 73 Pulse Rate [Left] 72 Respiratory Rate 12 14 Blood Pressure 127/83 Blood Pressure [Right Arm] 127/83 Blood Pressure Mean [Right Arm] 97 02 Sat by Pulse Oximetry 100 [facility] [place] HPI - General Stated complaint: covid test, cough,runny nose, vomiting Time Seen by Provider: 05/28/21 22:10 Mode of Arrival: Ambulatory Source of Information: Patient Limitations: No Limitations Description of Symptoms (Recalled from Triage Doc. by RN): pt needs covid test for work. HEENT Symptoms (Recalled from RN notes): No Resp Symptoms (Recalled from RN notes): No Skin Symptoms (Recalled from RN notes): No MS Symptoms (Recalled from RN notes): No Functional Status (Recalled from RN notes): na - History of Present Illness Provider Complaint: Today, she had an episode of sneezing at her work. She was told to go get a covid-19 test and not to return until she had a negative result. She denies that she has been sick or felt bad. She states that allergies were making her sneeze. She has not been vaccinated against covid-19. - Related Data Home Medications Medication Instructions Recorded Confirmed No Known Home Medications 03/11/21 03/11/21 Allergies Allergy/AdvReac Type Severity Reaction Status Date / Time Penicillins [PENICILLINS] Allergy Intermediate Verified 03/11/21 13:05 - Worker's Comp Is this a Worker's Comp case?: No [facility] History - Hepatitis A Screen Drug use history?: No High risk sexual behaviors?: No History of sexually transmitted infection?: No Currently employed?: No Childcare worker?: No Do you have indoor plumbing?: Yes Do you have electricity?: Yes Attestation statement:: This patient has been screened for Hepatitis A risk factors. I have reviewed the patient's past medical history: Yes Medical History: Reports:: Kidney Stones Denies:: Cancer, Diabetes Mellitus Type 1, Diabetes Mellitus Type 2, MRSA Other Surgeries: Yes: Hysterectomy-Total, Other (skin grafts age 10) Amputation: No Fractures: Yes Comment: - Social History Smoking Status: Current every day smoker Tobacco Type: cigarettes # Packs/Day (cigarettes): 1 Alcohol Intake: never Substance Use Type: heroin Occupational Status: employed Family Hx:: Cancer, Heart Attack, Hyperlipidemia ROS Obtained: Yes All systems reviewed & no additional complaints - Constitutional Constitutional: Reports system reviewed and no additional complaints, except as docu - Eyes Eyes: Reports system reviewed and no additional complaints, except as docu - ENT Ears, Nose, Mouth, and Throat: Reports system reviewed and no additional complaints, except as docu - Cardiovascular Cardiovascular: Reports system reviewed and no additional complaints, except as docu - Respiratory Respira
== END 2021-05-28 22:23 | disposition home or self-care (01) ==
PROVIDERS: Emergency Provider Nurse Practitioner Family; PCP Emergency Medicine
DX: Z20.822 Contact with and (suspected) exposure to COVID-19 (principal); R05 Cough; R11.10 Vomiting, unspecified; F17.210 Nicotine dependence, cigarettes, uncomplicated
CPT/HCPCS: 99202; C9803; G0463; U0003; U0005

== ENCOUNTER → 2021-08-14 13:48 | Outpatient (CLI) | payer MEDICAID, SELFPAY | PROVIDERS: PCP Emergency Medicine; Visit Provider Nurse Practitioner | DX: Z20.822 Contact with and (suspected) exposure to COVID-19 (principal) | CPT/HCPCS: C9803; U0003; U0005 ==